=== PATIENT | male | born 1985 | race Two or more races ===

== ENCOUNTER 2023-11-25 13:17 | Emergency (ER) | payer OTHER ==
[2023-11-25 13:22] VITALS: BP 132/88; PULSE 89; RESP 18; TEMP 99; BMI 25.8
[2023-11-25] MEDS ORDERED: ACETAMINOPHEN 325 MG TABLET (FP) PO ONE (13:28)
[2023-11-25] MEDS ORDERED: ACETAMINOPHEN 325 MG TABLET (FP) ONE (13:35)
== END 2023-11-25 14:09 | disposition home or self-care (01) ==
LOC: FER 13:17
DX: R50.9 Fever, unspecified (principal); R05.9 Cough, unspecified; B34.9 Viral infection, unspecified; Z20.822 Contact with and (suspected) exposure to COVID-19
CPT/HCPCS: 0241U-QW; 71046-TC-FY; 99284-25